=== PATIENT | female | born 1980 | race Caucasian/White ===

== ENCOUNTER 2021-09-13 08:41 | Outpatient (CLI) | payer OTHER, SELFPAY ==
--- NOTE | ~2021-09-13 | MM_ITS ---
EXAMINATION: MM screening chicho BI w kyaw HISTORY: Screening mammogram TECHNIQUE: Craniocaudal and mediolateral oblique 3-D tomosynthesis images were obtained and synthetic 2-D images were generated. CAD analysis was submitted and interpreted. COMPARISON: 02/26/2019, 12/24/2017, 01/16/2016 bilateral digital screening mammogram examinations BREAST PARENCHYMAL COMPOSITION: The breasts are heterogeneously dense, which may obscure small masses . FINDINGS: There is no evidence of suspicious mass, calcification, or architectural distortion to sugg est malignancy in either breast. There has been no suspicious interval change. IMPRESSION: 1. No mammographic evidence of malignancy. 2. Recommend routine screening mammography in one year. BI-RADS Category 1: Negative Reviewed, dictated and finalized at location A.
== END 2021-09-13 08:42 | disposition home or self-care (01) ==
LOC: ANHIMG 08:46
PROVIDERS: PCP Family Medicine; Visit Provider Obstetrics & Gynecology
DX: Z12.31 Encounter for screening mammogram for malignant neoplasm of breast (principal)
CPT/HCPCS: 77063; 77067

== ENCOUNTER → 2021-12-28 11:15 | Outpatient (REF) | payer OTHER, SELFPAY | LOC: ANHLAB 11:15 | PROVIDERS: PCP Family Medicine; Visit Provider Nurse Practitioner | DX: D22.39 Melanocytic nevi of other parts of face (principal) | CPT/HCPCS: 88305 ==

== ENCOUNTER 2022-07-27 11:25 | Outpatient (CLI) | payer OTHER, SELFPAY ==
--- NOTE | ~2022-07-27 | MM_ITS ---
EXAMINATION: MM diagnostic chicho BI w kyaw HISTORY: Left breast pain, palpable left breast lump TECHNIQUE: Full field and spot ML, MLO and CC 3-D tomosynthesis images of both breasts were performed and synthetic 2-D images were generated. CAD analysis was submitted and interpreted. COMPARISON: 09/13/2021 bilateral screening mammogram BREAST PARENCHYMAL COMPOSITION: The breasts are heterogeneously dense, which may obscure small masses . FINDINGS: Bilateral mammographic asymmetries. No suspicious calcifications. No skin thickening or retraction. IMPRESSION: 1. Bilateral mammographic asymmetries 2. Bilateral breast ultrasound examination is recommended. BI-RADS Category 0: Incomplete: Needs additional imaging evaluation. Reviewed, dictated and finalized at location A.
== END 2022-07-27 11:26 | disposition home or self-care (01) ==
LOC: ANHIMG 11:26
PROVIDERS: PCP Family Medicine; Visit Provider Family Medicine
DX: N64.4 Mastodynia (principal); R92.8 Other abnormal and inconclusive findings on diagnostic imaging of breast
CPT/HCPCS: 77062; 77066; G0279

== ENCOUNTER → 2022-07-31 08:47 | Outpatient (CLI) | payer OTHER, SELFPAY ==
--- NOTE | ~2022-07-31 | US_ITS ---
US breast BI complete DATE: 07/31/2022 09:26 INDICATION: Bilateral mammographic asymmetries reported on 07/27/2022 bilateral diagnostic mammogram TECHNIQUE: Real-time imaging of all 4 quadrants and subareolar areas of both breasts. COMPARISON: 07/27/2022 bilateral screening mammogram FINDINGS: Right breast: 11:00 4 cm from nipple: Irregular 6.2 x 8.7 x 11 mm mass with internal vascularity, no posterior shad owing. Ultrasound-guided biopsy is recommended. 11:00 3 cm from nipple: 4 mm cyst 12:00 3 cm from nipple: 4.7 x 5.8 x 7.4 mm parallel circumscribed hypoechoic lesion without internal vascularity or posterior shadowing, likely benign 4:00 4 cm from nipple: Irregular hypoechoic approximately 5.5 x 3.2 x 4 mm area without internal vasc ularity or posterior shadowing. The irregularity however is of concern. Consider ultrasound-guided bi opsy. 8:00 5 cm from nipple: 2.6 mm cyst Left breast: 12:00 1 cm from nipple: Parallel circumscribed 5.2 x 3.9 x 3.8 mm hypoechoic lesion without internal internal vascularity or posterior shadowing, likely benign 11:00 2 cm from nipple: 4 x 3.7 x 5 mm circumscribed hypoechoic lesion without internal vascularity o r posterior shadowing, likely benign 1:00 3 cm from nipple: 3 mm rounded hypoechoic area without internal vascularity or posterior shadowi ng, likely benign 4:00 near nipple: 3.5 x 4 x 4.5 mm probable septated cyst 6:00 4 cm from nipple: Circumscribed heterogeneous reviewed by 11 10 mm lesion without internal vascu larity or posterior shadowing, likely benign. 6:00 near nipple: Parallel circumscribed 3.2 x 2.4 x 4.6 mm well-circumscribed hypoechoic area, likel y benign 8:00 5 cm from nipple: Parallel circumscribed hypoechoic 2.3 x 2.89 mm lesion without internal vascul arity or posterior shadowing, likely benign IMPRESSION: Right breast 11:00 6.2 x 8.7 x 11 mm lesion 4 cm from nipple with internal vascularity; u ltrasound-guided biopsy is recommended Right breast 4:00 lesion 4 cm from nipple: Irregular hypoechoic 5.5 x 3.2 x 4 point millimeter area; ultrasound-guided biopsy is recommended Bilateral breast ultrasound follow-up in 6 months is recommended for multiple bilateral probably amber gn breast masses Right breast: BI-RADS Category 4: Suspicious abnormalities; biopsy should be considered (11:00 and 4: 00) Right and left breast: BI-RADS Category 3: Probably benign lesions of both breasts; bilateral breast ultrasound follow-up in 6 months is recommended Reviewed, dictated and finalized at Location A. Reviewed, dictated and finalized at location A. IMPRESSION: Right breast 11:00 6.2 x 8.7 x 11 mm lesion 4 cm from nipple with i nternal vascularity; ultrasound-guided biopsy is recommended Right breast 4:00 lesion 4 cm from nipple: Irregular hypoechoic 5.5 x 3.2 x 4 p oint millimeter area; ultrasound-guided biopsy is recommended Bilateral breast ultrasound follow-up in 6 months is recommended for multiple b ilateral probably benign breast masses Right breast: BI-RADS Category 4: Suspicious abnormalities; biopsy should be co nsidered (11:00 and 4:00) Right and left breast: BI-RADS Category 3: Probably benign lesions of both pat sts; bilateral breast ultrasound follow-up in 6 months is recommended
== END ==
PROVIDERS: PCP Family Medicine; Visit Provider Family Medicine
DX: R92.8 Other abnormal and inconclusive findings on diagnostic imaging of breast (principal)
CPT/HCPCS: 76641

== ENCOUNTER 2022-08-16 09:04 | Outpatient (CLI) | payer OTHER, SELFPAY ==
--- NOTE | ~2022-08-16 | MMUS_ITS ---
EXAMINATION: US GUIDED NEEDLE BIOPSY DATE: 08/16/2022 10:41 CDT INDICATION: 11:00 and 4:00 ultrasound breast abnormalities TECHNIQUE AND FINDINGS: The risks and potential benefits of the procedure were discussed with the patient, and written inform ed consent was obtained. Timeout procedure was performed. After sterile preparation of the right pat st, 1% lidocaine was utilized for local anesthesia 4 11:00 and 4:00 lesions. A 14G spring-loaded biopsy gun needle was advanced to the edge of the region of the 11:00 lesion and subsequently 4:00 lesion from a lateral approach approach utilizing sonographic guidance. A total of 4 core samples were obtained from the 11:00 lesion and three tissue core samples were obtained throu gh the 4:00 lesion. An Inrad tissue marker clip was then placed at each of the 2 biopsy sites. Hemos tasis was achieved. A sterile bandage was applied. The patient tolerated procedure well and there was no evidence of immediate complication. The patien t was given verbal instructions prior to departing from the department. A two view mammogram was perf ormed to document tissue marker clip placements. The tissue samples were submitted to surgical pathol bladimir for histologic analysis. IMPRESSION: 1. Successful ultrasound guided biopsy of right 11:00 and 4:00 breast masses with biopsy marker plac eran. Reviewed, dictated and finalized at Location A. Reviewed, dictated and finalized at location A. IMPRESSION: 1. Successful ultrasound guided biopsy of right 11:00 and 4:00 breast masses w ith biopsy marker placement. IMPRESSION: 1. Successful ultrasound guided biopsy of right 11:00 and 4:00 breast masses w ith biopsy marker placement.
== END 2022-08-16 09:05 | disposition home or self-care (01) ==
PROVIDERS: PCP Family Medicine; Visit Provider Family Medicine
DX: R92.8 Other abnormal and inconclusive findings on diagnostic imaging of breast (principal)
CPT/HCPCS: 19083; 19084; 88305; A4648

== ENCOUNTER 2023-01-06 14:29 | Emergency (ER) | payer OTHER, SELFPAY ==
[2023-01-06 14:40] VITALS: BP 129/87; PULSE 116; RESP 16; TEMP 36.9; O2SAT 100
--- NOTE | 2023-01-06 14:52 | ED.FEMALEGU ---
HPI - Female Genitourinary General Chief complaint: Urogenital-Female Stated complaint: uti Time Seen by Provider: 01/06/23 14:40 Source: patient Mode of arrival: ambulatory Limitations: no limitations History of Present Illness HPI Narrative: Patient presents today with a 2 week history of dysuria, urgency, malodorous urine, and cloudy urine. Denies abdominal pain, back pain. Patient is just finishing her menstrual cycle. She has tried no [id number] treatment prior to arrival. Related Data Home Medications Medication Instructions Recorded Confirmed levothyroxine 112 mcg tablet 88 mcg PO DAILY 11/07/21 01/06/23 (Synthroid) Allergies Allergy/AdvReac Type Severity Reaction Status Date / Time NSAIDS (Non-Steroidal AdvReac Intermediate ABD PAIN, Verified 12/28/21 10:49 Anti-Inflamma DIARRHEA-HX COLITIS Review of Systems Review of Systems: CONSTITUTIONAL: Denies body aches, fever, chills, or sweats. EYES: Denies visual changes, redness, or discharge. ENT: Denies rhinorrhea, congestion, sore throat, or otalgia. CARDIOVASCULAR: Denies chest pain, palpitations, or edema. RESPIRATORY: Denies cough or dyspnea. GASTROINTESTINAL: Denies abdominal pain, nausea, vomiting, or diarrhea. GENITOURINARY: + dysuria, urgency, malodorous urine, cloudy urine SKIN: Denies rash, itching, or wounds. MUSCULOSKELETAL: Denies back pain, joint pain, or myalgia. NEUROLOGIC: Denies headache, numbness, tingling, or weakness. PSYCH: Denies depression or anxiety. [facility] Past Medical History Medical History Collagenous colitis Thyroid disease Family History Family History Mother Breast cancer Other Breast cancer Grandparent Cerebrovascular accident Social History Social History Alcohol intake: never Comments At time of signature, I have reviewed and agree with nursing past medical, surgical, social and family history unless otherwise noted. Please see nursing chart for further information. There is no relevant family history pertinent to the presenting complaint Exam Narrative: GENERAL: Well-appearing, well-nourished, and in no acute distress. HEAD: Normocephalic, atraumatic. EYES: EOMI. No redness or drainage. Conjunctivae normal. ENT: Mucous membranes pink and moist. NECK: Normal AROM CHEST: No respiratory distress. Clear to auscultation. HEART: Regular rate and rhythm. No murmur appreciated. Normal peripheral pulses. ABDOMEN: Soft, nondistended, normal active bowel sounds.+ palpation of the suprapubic area causes sensation of urinary urgency. -CVAT EXTREMITIES: Normal range of motion. No edema. SKIN: Warm, dry, no rash. Capillary refill normal. Normal skin turgor. NEURO: No focal deficits. Alert and oriented x3. Gait steady. PSYCH: Normal affect. No signs of depression or anxiety. Course Course Level of Care: Express Care Visit Vital Signs Vital signs: Vital Signs Temperature 98.5 F 01/06/23 14:40 Pulse Rate 116 H 01/06/23 14:40 Respiratory Rate 16 01/06/23 14:40 Blood Pressure 129/87 01/06/23 14:40 Pulse Oximetry 100 01/06/23 14:40 Temperature 98.5 F 01/06/23 14:40 Pulse Rate 116 H 01/06/23 14:40 Respiratory Rate 16 01/06/23 14:40 Blood Pressure 129/87 01/06/23 14:40 Pulse Oximetry 100 01/06/23 14:40 Reviewed. Pt has been instructed to follow up with her PCP regarding her elevated blood pressure today. MDM - Female Genitourinary MDM Narrative Medical decision making narrative: Patient's symptoms and UA are consistent with UTI. Prescription for Keflex sent to pharmacy. Anticipatory guidance given. Differential Diagnosis Differential diagnosis: Likely urinary tract infection, vaginitis, cystitis and other (Pyelonephritis, interstitial cystitis) Lab Data Attestation: I ivana
== END 2023-01-06 15:01 | disposition home or self-care (01) ==
PROVIDERS: Emergency Provider Nurse Practitioner; PCP Family Medicine
DX: N30.01 Acute cystitis with hematuria (principal); E07.9 Disorder of thyroid, unspecified
CPT/HCPCS: 81003; 87086; 87088; 99213; G0463

== ENCOUNTER 2023-03-07 15:10 | Outpatient (CLI) | payer OTHER, SELFPAY ==
--- NOTE | ~2023-03-07 | US_ITS ---
EXAMINATION: US breast BI limited, US axilla BI HISTORY: Six-month follow-up for probably benign bilateral breast masses and palpable abnormalities o f the axilla. TECHNIQUE: Bilateral axillary ultrasound and limited bilateral breast ultrasound is performed. COMPARISON: 07/31/2022 FINDINGS: There are bilateral similar-appearing breast masses, none of which demonstrate suspicious i nterval change. No suspicious sonographic correlate is identified for the reported palpable abnormali ties in the axillae. IMPRESSION: 1. Stable similar appearing bilateral breast masses, considered benign. 2. No specific sonographic correlate is identified for the reported palpable abnormalities of the axi ally. Further evaluation at this time should be based on clinical assessment. Continued follow-up phy sical examination is recommended. BI-RADS Category 2: Benign finding(s). Reviewed, dictated and finalized at location A. IMPRESSION: 1. Stable similar appearing bilateral breast masses, considered benign. 2. No specific sonographic correlate is identified for the reported palpable ab normalities of the axially. Further evaluation at this time should be based on clinical assessment. Continued follow-up physical examination is recommended. BI-RADS Category 2: Benign finding(s).
== END 2023-03-07 15:11 | disposition home or self-care (01) ==
PROVIDERS: PCP Family Medicine; Visit Provider Family Medicine
DX: R23.8 Other skin changes (principal); R92.8 Other abnormal and inconclusive findings on diagnostic imaging of breast
CPT/HCPCS: 76642; 76882

== ENCOUNTER 2023-03-22 03:02 | Day surgery (SDC) | payer OTHER, SELFPAY ==
[2023-03-11 10:27] VITALS: BMI 23.1
--- NOTE | 2023-03-21 22:04 | PM.HPGS ---
History of Present Illness History of Present Illness Consent: Risks, benefits, and alternatives have been discussed and questions answered. Patient agrees to proceed with procedure. Chief complaint: GERD,dysph, colitis, hematochezia Narrative: Maritza Fisher ? Is a 42-year-old female who reports dysphagia to certain meats and pizza crust and also painful swallowingis she?has a history of collagenous colitis and Poppy's and follows with endocrine.? She had a colonoscopy due to extreme diarrhea and weight loss in 2012 by me and was diagnosed with collagenous colitis-.? She intermittently will have bouts of diarrhea either multiple times per week or multiple times per month.? Diarrheal will be worse if she eats a salad.? She does report abdominal cramping and increased gurgling with the diarrhea.? her main concern now is that she gets the pain just below the left side of her ribs and feels that it is a sensitivity for foods. It can last for an hour or for several days. She has concluded that is due to certain foods such as blackberries because the seeds seem to give her difficulty. She has also avoided gluten thinking that might help. She had a bright red bloody episode with clots 1-2 weeks ago and believes she has hemorrhoids but not entirely sure.? She also reports ?2 decades? of acid reflux and will depend on certain types of foods. Review of Systems Review of Systems: All systems reviewed & are unremarkable except as noted in HPI and below PMFSH Past Medical History Medical History Collagenous colitis Collagenous colitis Diarrhea Dysphagia GERD (gastroesophageal reflux disease) Odynophagia Thyroid disease Family History Family History Mother Breast cancer Other Breast cancer Grandparent Cerebrovascular accident Social History Social History Smoking status: Never smoker Alcohol intake: current Alcohol use details: rare Substance use: never Substance use type: does not use Living arrangements: with family Spiritual care concerns: No Meds Home Medications and Allergies Home Medications Medication Instructions Recorded Confirmed Type levothyroxine 112 mcg tablet 88 mcg PO DAILY 11/07/21 03/11/23 History (Synthroid) Adults Multivitamin 1 tab-cap PO DAILY 03/11/23 03/22/23 History Vitamin D3 (calcium cit-phos) 1 tab-cap PO DAILY 03/11/23 03/22/23 History vitamin K2 1 tab-cap PO DAILY 03/11/23 03/22/23 History Allergies Allergy/AdvReac Type Severity Reaction Status Date / Time NSAIDS (Non-Steroidal AdvReac Intermediate ABD PAIN, Verified 03/22/23 11:44 Anti-Inflamma DIARRHEA-HX COLITIS Exam Const: General: alert Orientation/consciousness: patient oriented x3 Resp: Auscultation: clear to auscultation bilaterally Cardio: Rhythm: regular rhythm GI: GI Palp: Yes Soft to palpation and No Tenderness to palpation present (GI) Neuro: General: patient oriented x3 Assessment and Plan Assessment and plan (1) Dysphagia: Code(s): R13.10 - Dysphagia, unspecified Status: Acute Assessment and Plan: EGD with possible biopsy or dilatation or cautery. (2) Diarrhea: Code(s): R19.7 - Diarrhea, unspecified Status: Acute Assessment and Plan: Colonoscopy with possible biopsy or polypectomy or cautery or injection of substances.
[2023-03-22 11:45] VITALS: BP 115/86; PULSE 113; RESP 18; TEMP 36.4; O2SAT 98; BMI 21.7
[2023-03-22] MEDS: LACTATED RINGERS 1,000 ML 150 ML IV CONT (11:48)
--- NOTE | 2023-03-22 12:29 | P.PNAN_ITS ---
Anes - Initial Pre Proc Eval Procedure: Operation Date: 03/22/23 12:45 Proposed Procedures p Esophagogastroduodenoscopy & Colonoscopy - Billy Amanda MD Date/Time: 03/22/23 12:29 Surgeon: Billy Amanda MD Pre Op Diagnosis: GERD,dysph, colitis, hematochezia Patient Data Age: 42 Gender: F Height: 1.65 m Weight: 59.1 kg Last Vital Signs Temp 97.6 F 03/22/23 11:45 Pulse 113 H 03/22/23 11:45 Resp 18 03/22/23 11:45 BP 115/86 03/22/23 11:45 Pulse Ox 98 03/22/23 11:45 O2 Del Method Room Air 03/22/23 11:45 Allergies Allergy/AdvReac Type Severity Reaction Status Date / Time NSAIDS (Non-Steroidal AdvReac Intermediate ABD PAIN, Verified 03/22/23 11:44 Anti-Inflamma DIARRHEA-HX COLITIS Home Medications Medication Instructions Recorded Confirmed Type levothyroxine 112 mcg tablet 88 mcg PO DAILY 11/07/21 03/11/23 History (Synthroid) Adults Multivitamin 1 tab-cap PO DAILY 03/11/23 03/22/23 History Vitamin D3 (calcium cit-phos) 1 tab-cap PO DAILY 03/11/23 03/22/23 History vitamin K2 1 tab-cap PO DAILY 03/11/23 03/22/23 History Patient hx anesthesia problems: none Family hx anesthesia problems: none Results Review: All pre-operative results and documents have been reviewed as part of the pre- operative evaluation. [facility], [facility] Past Medical History Medical History Collagenous colitis Collagenous colitis Diarrhea Dysphagia GERD (gastroesophageal reflux disease) Odynophagia Thyroid disease Family History Family History Mother Breast cancer Other Breast cancer Grandparent Cerebrovascular accident Social History Social History Smoking status: Never smoker Alcohol intake: current Alcohol use details: rare Substance use: never Substance use type: does not use Living arrangements: with family Spiritual care concerns: No Anes - Eval Final PreProcedure Day of Procedure 03/22/23 12:29 Patient weight: normal Heart: regular rate and rhythm Lungs: clear to auscultation Airway: Mallampati scale class II Neurological: alert and oriented Last oral intake: >/= 8 hours ASA classification: II Emergent: no Anesthetic plan: proceed Anesthesia type and monitoring: general GIVS and standard monitoring Results Review: All pre-operative results and documents have been reviewed as part of the pre- operative evaluation. Informed Consent: The patient's anesthetic plan and its attendant risks and benefits were discussed with the patient/family/POA. Questions were solicited and answers provided to the satisfaction of the patient/family/POA.
[2023-03-22 12:33] VITALS: BP 112/73; PULSE 78; RESP 18; O2SAT 100
--- NOTE | 2023-03-22 12:48 | SUR.OPER ---
EGD completed 1240, colonoscopy started 1248
[2023-03-22 13:03] VITALS: BP 79/51; PULSE 82; RESP 18; O2SAT 99
[2023-03-22 13:13] VITALS: BP 85/53; PULSE 72; RESP 18; O2SAT 100
[2023-03-22 13:23] VITALS: BP 97/60; PULSE 66; RESP 18; O2SAT 100
== END 2023-03-22 14:00 | disposition home or self-care (01) ==
PROVIDERS: PCP Family Medicine; Visit Provider Internal Medicine Gastroenterology
PROC: 0DJ08ZZ Inspection of Upper Intestinal Tract, Via Natural or Artificial Opening Endoscopic (ICD-10-PCS; CPT 43235; principal; 2023-03-22 12:45)
DX: R19.7 Diarrhea, unspecified (principal); K64.8 Other hemorrhoids; K29.70 Gastritis, unspecified, without bleeding; R13.10 Dysphagia, unspecified; E07.9 Disorder of thyroid, unspecified
CPT/HCPCS: 45380; 43239; 87081; 88305; J2704; J7120

== ENCOUNTER 2023-05-13 00:58 | Day surgery (SDC) | payer OTHER, BC, SELFPAY ==
[2023-05-08 11:24] VITALS: BMI 21.6
--- NOTE | 2023-05-08 11:30 | PC.NURSE ---
Report to the Outpatient Waiting Room, entrance under the green pavilion located off [facility], at time 0600 on date 05/13/23. Planned Procedure Time: 0730. Time changes happen often and if your time is changed the preop area will call you the afternoon before. - You and your visitor will be asked to self-screen and do not enter if you have any COVID symptoms. - A mask is optional within the hospital at this time. Patients may have clear liquids (water, carbonated beverages, clear teas, apple juice) until 3 hours prior to surgery with a maximum of 20 ounces. - No food from midnight until time of surgery Take the following medications with a SIP of water the morning of surgery: LEVOTHYROXINE DO NOT STOP ANY OF YOUR OTHER PRESCRIPTION MEDICATIONS PRIOR TO SURGERY ?EXCEPT THE FOLLOWING Medications to discontinue per physician: VITAMINS/SUPPLEMENTS Date to take last dose: 05/09/23 Please no make-up, nail ukrainian, hairspray, perfume, deodorant, or body powder the day of surgery. No jewelry (including any body piercings) or valuables the day of surgery, leave them at home. Please take a shower or bath the night before, or the morning of, surgery with an antibacterial soap. Wear comfortable, loose fitting clothing. - Jewelry must be removed prior to entering the operating room. Rings and piercings that are not removed may be cut off. - The hospital will not accept responsibility for valuables. - Please leave all valuables, including medications, at home the day of surgery. If you are going home after surgery, a licensed dumpcart driver must drive you home. - NO public transportation without another adult if you receive anesthesia. - We recommend that an adult stay with you for 24 hours following discharge. - We also recommend that you do not drive, make important decision, drink alcoholic beverages, or take any drugs that were not prescribed by your health care provider for at least 24 hours after your discharge time. Follow any additional instructions given to you from your surgeon. If you or anyone in your household have experienced Covid symptoms in the past week, please notify your surgeon or the nurse liaison at the phone number below for possible testing. Telephone instructions given to PT - DIONISIO NÚÑEZ and asked if any additional questions and then verbalized understanding. Patient advised to call surgeon office or pre surgery nurse liaison [phone] if any additional questions.
--- NOTE | 2023-05-12 10:59 | PM.IMHP ---
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 She is unsure how long the vaginal bump has been there; her noticed it. She denies pain, itching, discharge. [place] is not painful, but she would like it removed. Also had an annoying bump on her buttock that gets irritated by her underwear that she would also like removed. She is using condoms for BC; but wants to proceed with permanent sterilization. Review of Systems Constitutional: Constitutional: Denies chills, Denies fever(s) and Denies headache(s) Eyes: Eyes: Denies change in vision ENT: Denies dizziness and Denies headache(s) Cardiovascular: Cardiovascular: Denies chest pain and Denies dyspnea Respiratory: Respiratory: Denies cough and Denies dyspnea Gastrointestinal: Gastrointestinal: Denies abdominal pain and Denies change in stool character Genitourinary: Genitourinary: Denies abnormal menses, Denies pelvic pain, Denies vaginal discharge, Denies vaginal odor and Denies vaginal pruritus Neurologic: Denies dizziness and Denies headache(s) Psychiatric: Psychiatric: Denies anxiety and Denies depression PMFSH Past Medical History Medical History Chronic diarrhea Collagenous colitis Collagenous colitis Colon cancer screening Diarrhea Dysphagia Encounter for screening colonoscopy GERD (gastroesophageal reflux disease) Internal hemorrhoids Irritable bowel syndrome with diarrhea LUQ pain Odynophagia Thyroid disease Weight loss Surgical History Surgical History H/O endoscopy H/O hemorrhoidectomy History of dilation and curettage Hx of breast biopsy right breast Family History Family History Mother Breast cancer Other Breast cancer Grandparent Cerebrovascular accident Social History Social History Smoking status: Never smoker Alcohol intake: current Alcohol use details: RARE Substance use: never Substance use type: does not use Living arrangements: with family Occupation/Education: occupation Gender identity (if verbalized by the patient): Female Sexual Orientation (if Verbalized by the Patient): Straight or Heterosexual Spiritual care concerns: No Meds Home Medications and Allergies Home Medications Medication Instructions Recorded Confirmed Type cholecalciferol (vitamin D3) 125 125 mcg PO DAILY 05/08/23 05/08/23 History mcg (5,000 unit) tablet (Vitamin D3) levothyroxine 88 mcg tablet 88 mcg PO DAILY 05/08/23 05/08/23 History multivitamin 1 tablet PO DAILY 05/08/23 05/08/23 History vitamin K2 100 mcg capsule 100 mcg PO DAILY 05/08/23 05/08/23 History Allergies Allergy/AdvReac Type Severity Reaction Status Date / Time NSAIDS (Non-Steroidal AdvReac Intermediate ABD PAIN, Verified 05/08/23 11:23 Anti-Inflamma DIARRHEA-HX COLITIS Exam Const: General: cooperative, healthy appearing, comfortable and no acute distress Orientation/consciousness: patient oriented x3 Resp: Effort & Inspection: normal respiratory effort Cardio: Rate: regular rate GI: Inspection: normal to inspection GI Palp: No abdominal tenderness and Yes Soft to palpation : Other: deferred to OR Skin: General skin exam: normal color Neuro: General: patient oriented x3 Extrem: General: normal to inspection Psych: Appearance: grossly normal Affect: normal affect Attitude: cooperative Assessment and Plan Assessment and plan (1) Encounter for female sterilization procedure: Code(s): Z30.2 - Encounter for sterilization Status: Acute (2) Vaginal inclusion cyst: Code(s): N89.8 - Other specified noninf
[2023-05-13] VITALS (12 sets, daily range): BP systolic 89–124; BP diastolic 51–73; PULSE 56–96; RESP 12–16; TEMP 36.3–37.2; O2SAT 100
--- NOTE | 2023-05-13 06:47 | WPDANESEPPF ---
Anes - Initial Pre Proc Eval Procedure: Operation Date: 05/13/23 07:30 Proposed Procedures p Bilateral Laparoscopic Salpingectomy, Excision of Vaginal Cyst, Excision of Right Buttock Lesion - Myrna Kay MD Date/Time: 05/13/23 06:47 Surgeon: Myrna Kay MD Pre Op Diagnosis: desired sterilization, vag cyst, butt cheek lesion Patient Data Age: 42 Gender: F Height: 1.65 m Weight: 58.8 kg Last Vital Signs Temp 37.2 C 05/13/23 06:29 Pulse 96 05/13/23 06:29 Resp 16 05/13/23 06:29 BP 101/71 05/13/23 06:29 Pulse Ox 100 05/13/23 06:29 O2 Del Method Room Air 05/13/23 06:29 Allergies Allergy/AdvReac Type Severity Reaction Status Date / Time NSAIDS (Non-Steroidal AdvReac Intermediate ABD PAIN, Verified 05/13/23 06:30 Anti-Inflamma DIARRHEA-HX COLITIS Home Medications Medication Instructions Recorded Confirmed Type cholecalciferol (vitamin D3) 125 125 mcg PO DAILY 05/08/23 05/13/23 History mcg (5,000 unit) tablet (Vitamin D3) levothyroxine 88 mcg tablet 88 mcg PO DAILY 05/08/23 05/13/23 History multivitamin 1 tablet PO DAILY 05/08/23 05/13/23 History vitamin K2 100 mcg capsule 100 mcg PO DAILY 05/08/23 05/13/23 History Patient hx anesthesia problems: none Family hx anesthesia problems: none Results Review: All pre-operative results and documents have been reviewed as part of the pre-operative evaluation. FOR[facility]LY [facility] Past Medical History Medical History Chronic diarrhea Collagenous colitis Collagenous colitis Colon cancer screening Diarrhea Dysphagia Encounter for screening colonoscopy GERD (gastroesophageal reflux disease) Internal hemorrhoids Irritable bowel syndrome with diarrhea LUQ pain Odynophagia Thyroid disease Weight loss Surgical History Surgical History H/O endoscopy H/O hemorrhoidectomy History of dilation and curettage Hx of breast biopsy right breast Family History Family History Mother Breast cancer Other Breast cancer Grandparent Cerebrovascular accident Social History Social History Smoking status: Never smoker Alcohol intake: current Alcohol use details: RARE Substance use: never Substance use type: does not use Living arrangements: with family Occupation/Education: occupation Gender identity (if verbalized by the patient): Female Sexual Orientation (if Verbalized by the Patient): Straight or Heterosexual Spiritual care concerns: No Anes - Eval Final PreProcedure Day of Procedure 05/13/23 06:47 Patient weight: normal Heart: regular rate and rhythm Lungs: clear to auscultation Airway: Mallampati scale class II Neurological: alert and oriented Last oral intake: >/= 8 hours ASA classification: II Emergent: no Anesthetic plan: proceed Anesthesia type and monitoring: general ETT and standard monitoring Results Review: All pre-operative results and documents have been reviewed as part of the pre-operative evaluation. Informed Consent: The patient's anesthetic plan and its attendant risks and benefits were discussed with the patient/family/POA. Questions were solicited and answers provided to the satisfaction of the patient/family/POA.
[2023-05-13] MEDS: LACTATED RINGERS 1,000 ML 30 ML IV CONT ×2 (06:51→10:20)
[2023-05-13] MEDS: ACETAMINOPHEN 500 MG TABLET 1000 MG PO (06:52)
--- NOTE | 2023-05-13 06:57 | WPDHPUPDATE1 ---
History and Physical Update Update Date/Time: 05/13/23 06:57 History and Physical has been reviewed, including an updated exam of the patient. There are NO changes in the patient's condition. Risks, benefits, and alternatives have been discussed and questions answered. Patient agrees to proceed with procedure.
[2023-05-13] MEDS: BUPIVACAINE/EPINEPHRINE 0.5% 50 ML VIAL 10 ML INFILTRATE (07:28)
--- NOTE | 2023-05-13 08:32 | W.PM.PROC2 ---
Procedure Note - Detailed Date of Procedure 05/13/23 Pre-op Diagnosis desired sterilization, vag cyst, butt cheek lesion Post-op Diagnosis Same Procedure Performed Laparoscopic bilateral salpingectomy, vaginal cyst removal, buttock lesion removal Surgeon Myrna Kay MD Anesthesia General and Local (30cc of 0.25% Marcaine w/ epi) Findings Normal cervix; right cornual fibroid ~3cm, left fallopian tube with small paratubal cyst (removed), normal left fallopain tubes, normal ovaries. 1cm midline epidermoid cyst ~1-2 cm posterior to the hymen. 2cm cyst of right buttock; appears to be a lipoma. Description of Procedure Maritza was taken to the operating room where she was placed under general endotracheal anesthesia without complications. She was then prepped and draped in the usual sterile fashion in the dorsal lithotomy position with her legs in low Quoc stirrups and her arms tucked at her side with a strap over her chest. A time-out was performed and no preoperative antibiotics were indicated. My attention was turned down below where her bladder was drained via straight catheterization. A bivalve speculum was then placed within the vagina where the cervix was easily identified. The anterior lip of the cervix was grasped with a single-tooth tenaculum and a diagnostic uterine manipulator was placed without complications. My gloves were changed and my attention was turned to her abdomen. An umbilical incision was made, and a 5 mm trocar was placed under direct visualization without complications. Once intra-abdominal placement was confirmed the abdomen was insufflated with carbon dioxide gas. She was then placed in Trendelenburg and two additional 5 mm ports were placed in the left and right lower quadrants under direct visualization without complications. The above findings were noted. The left fallopian tube was then elevated and the mesosalpinx was serially clamped, coagulated, transected using the LigaSure device until the proximal end of the fallopian tube was reached. The proximal end of the fallopian tube was cross clamped, coagulated and transected. The tube was then removed from the abdomen. The same procedure was then performed on the right side without any complications. Good hemostasis was noted. All instruments were removed from the abdomen. The insufflation was released and the trocars were removed. The 3 laparoscopic incision sites were reapproximated using 4-0 Monocryl and covered with Dermabond. The incisions were then infiltrated using 0.25% Marcaine with epinephrine. The uterine manipulator was removed. The vaginal lesion was identified and the surrounding area was infiltrated with 0.25% Marcaine with epinephrine. Using a 15 blade, a small incision was made in the vaginal mucosa over the epidermoid cyst. The cyst was undermined and partially removed when the cyst ruptured and caseous contents were noted. The remaining portion of the cyst was removed. The incision was reapproximated using 3-0 Vicryl in the normal fashion. The buttock lesion was identified and the surrounding area was infiltrated with 0.25% Marcaine with epinephrine. a 2cm incision was made and the lipoma was identified and undermined and removed. The incision was reapproximated using 4-0 Monocryl in the normal fashion. Sponge, lap, instrument, and needle counts were correct at the end of the procedure. Patient was awoken from general anesthesia and taken to recovery with plans of same-day discharge home. Estimated Blood Loss 10 IV Fluids 700 Urine Output 200 Pathology Yes (right and left fallopian tubes, right buttock lesion) Complications No immediate complications Condition Stable Disposition Same day [facility] Billing Surgery - Charge Forward: Surgery Billing
--- NOTE | 2023-05-13 09:35 | SUR.PHASEI ---
RN clarified w/ Dr. Kay that taking antibiotics wouldn't interfere with CT of abdomen this coming .
[2023-05-13] MEDS: ONDANSETRON INJ 4 MG/2 ML VIAL IV PUSH (10:29)
--- NOTE | 2023-05-13 11:38 | SUR.PHASEII ---
1125 PATIENT LIGHT-HEADED AND NOT FEELING WELL WHEN SHE STOOD UP. WILL CONTINUE TO GIVE IV FLUIDS AND LET PATIENT REST. BLOOD PRESSURE WNL. COOL COMPRESSES TO FOREHEAD AND NECK. RAQUEL Vieira/Stephanie.
--- NOTE | 2023-05-13 11:56 | SUR.PHASEII ---
PATIENT STILL NOT FEELING WELL IN HER HEAD, FEELS VERY SLEEPY. ORIENTED X 3; DOZING BUT EASILY AROUSABLE. CONTINUE WITH PROVIDING IV FLUIDS. PATIENT NOW EATING APPLE SAUCE.
--- NOTE | 2023-05-13 12:22 | SUR.PHASEII ---
PATIENT ABLE TO STAND AND WALK WITHOUT LIGHT-HEADEDNESS. STATES READY TO GO HOME.
== END 2023-05-13 12:37 | disposition home or self-care (01) ==
PROVIDERS: PCP Family Medicine; Visit Provider Obstetrics & Gynecology
PROC: (CPT 49320; principal; 2023-05-13 07:30)
DX: Z30.2 Encounter for sterilization (principal); N83.8 Other noninflammatory disorders of ovary, fallopian tube and broad ligament; N89.8 Other specified noninflammatory disorders of vagina; D17.1 Benign lipomatous neoplasm of skin and subcutaneous tissue of trunk; D25.9 Leiomyoma of uterus, unspecified; E07.9 Disorder of thyroid, unspecified
CPT/HCPCS: 21930; 58661; 57135; 88302; 88305; A9270; J1100; J1170; J2250; J2405; J2704; J2710; J3010; J7030; J7120

== ENCOUNTER 2023-05-15 13:14 | Emergency (ER) | payer OTHER, BC, SELFPAY ==
[2023-05-15] VITALS (9 sets, daily range): BP systolic 95–110; BP diastolic 69–78; PULSE 70–95; RESP 10–28; TEMP 36.6; O2SAT 98–100
--- NOTE | ~2023-05-15 | XR_ITS ---
EXAMINATION: XR chest 2V DATE: 05/15/2023 14:10 INDICATION: Shortness of breath, recent pelvic surgery TECHNIQUE: PA and lateral views of the chest are obtained. COMPARISON: None available FINDINGS: The lungs are free of acute opacities. No pleural effusion or pneumothorax. The cardiomedia stinal silhouette is normal. The visualized bones and soft tissues are unremarkable. There is free ai r under the diaphragm, consistent with recent surgery. IMPRESSION: 1. No acute cardiopulmonary abnormality. Reviewed, dictated and finalized at location []
--- NOTE | ~2023-05-15 | US_ITS ---
EXAMINATION: US venous doppler [facility] DATE: 05/15/2023 14:42 INDICATION: Bilateral lower limb pain TECHNIQUE: Paiz scale images without and with compression and Doppler images of the bilateral lower e xtremity veins were obtained. COMPARISON: None FINDINGS: The right common femoral vein, profunda femoral vein, femoral vein, popliteal vein, peroneal trunk, p osterior tibial veins, and greater saphenous vein are patent. The left common femoral vein, profunda femoral vein, femoral vein, popliteal vein, peroneal trunk, po sterior tibial veins, and greater saphenous vein are patent. IMPRESSION: 1. Patent bilateral lower extremity veins. No evidence of deep venous thrombosis. Reviewed, dictated and finalized at location [] IMPRESSION: 1. Patent bilateral lower extremity veins. No evidence of deep venous thrombosi s.
--- NOTE | ~2023-05-15 | CT_ITS ---
EXAMINATION: CTA chest PE abdomen pel DATE: 05/15/2023 15:21 INDICATION: Shortness of breath and abdominal pain TECHNIQUE: Computed tomography angiography (CTA) of the chest was performed with 100 mL Omnipaque-350 intravenous contrast timed to evaluate the pulmonary arteries. Subsequent postcontrast images of the abdomen and pelvis are obtained. Coronal maximum intensity projection 3D-reconstructions were create d by the technologist. The dose-length product (DLP) was 438.05 mGy-cm. Automated exposure control an d iterative reconstruction technique were employed. COMPARISON: None. FINDINGS: CTA CHEST: The pulmonary arteries are well-opacified. No pulmonary embolism is identified. The lungs are free of acute opacities. No pleural effusion or pneumothorax. No pathologically enlarged thoracic lymph nodes are identified. The heart size is normal. ABDOMEN/PELVIS CT: There is free intraperitoneal gas predominantly in the upper abdomen. The liver, s pleen, pancreas, gallbladder, and adrenal glands are normal. The kidneys are unremarkable. No patholo gically enlarged abdominal or pelvic lymph nodes are identified. There are no dilated loops of bowel. There is a moderate volume of colonic stool. There is no peritoneal fluid. The urinary bladder is di stended. IMPRESSION: 1. No pulmonary embolus or acute cardiopulmonary abnormality. 2. Free intraperitoneal gas, consistent with recent surgery. No acute findings of the abdomen or pelv is. Reviewed, dictated and finalized at location [] IMPRESSION: 1. No pulmonary embolus or acute cardiopulmonary abnormality. 2. Free intraperitoneal gas, consistent with recent surgery. No acute findings of the abdomen or pelvis.
--- NOTE | 2023-05-15 13:16 | ECG_ITS ---
Measurements Intervals [place] Rate: 78 P: 68 [place]: 135 QRS: 51 QRSD: 91 T: 6 QT: 362 QTc: 415 Interpretive Statements SINUS RHYTHM NONSPECIFIC ST & T-WAVE ABNORMALITY NO PREVIOUS ECG AVAILABLE FOR COMPARISON Electronically Signed On 05-15-2023 13:51:20 CDT by Luis Galloway M.D.
--- NOTE | 2023-05-15 13:51 | ED.SOB ---
HPI - SOB/Dyspnea General Chief Complaint: Shortness of Breath/Dyspnea Stated Complaint: dyspnea Time Seen by Provider: 05/15/23 13:24 Source: patient and RN notes reviewed Mode of arrival: ambulatory Limitations: no limitations History of Present Illness HPI Narrative: This is a 42 year old female with history of collagenase colitis and Hashimotos who presents for evaluation of shortness of breath. Patient is s/p laparoscopic bilateral salpingectomy on 05/[address] Kay. She reports having upper abdominal pressure and substernal chest pressures since her surgery due to gas. She states her abdominal pressure has resolved but she is still having pressure in her chest that is worse with trying to take deep breath. She reports shortness of breath yesterday but it is better today. She was told to come to ER for rule out PE. She reports yesterday she had bilateral calf cramping but that has resolved. She denies history of PE/DVT. 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 She has already had EGD and colonoscopy to assess this pain. She denies nausea, vomiting, fever or chills. She is requesting me to order her CT today Related Data Home Medications Medication Instructions Recorded Confirmed cholecalciferol (vitamin D3) 125 125 mcg PO DAILY 05/08/23 05/13/23 mcg (5,000 unit) tablet (Vitamin D3) levothyroxine 88 mcg tablet 88 mcg PO DAILY 05/08/23 05/13/23 multivitamin 1 tablet PO DAILY 05/08/23 05/13/23 vitamin K2 100 mcg capsule 100 mcg PO DAILY 05/08/23 05/13/23 Allergies Allergy/AdvReac Type Severity Reaction Status Date / Time NSAIDS (Non-Steroidal AdvReac Intermediate ABD PAIN, Verified 05/14/23 14:57 Anti-Inflamma DIARRHEA-HX COLITIS Review of Systems Constitutional: Constitutional: Denies weakness Cardiovascular: Cardiovascular: Denies syncope, Denies rapid heart rate, Denies irregular heart rhythm, Denies leg edema and Denies dyspnea Respiratory: Respiratory: Denies chest congestion, Denies hemoptysis, Denies excessive phlegm production and Denies dyspnea Gastrointestinal: Gastrointestinal: Denies abdominal pain, Denies hematochezia, Denies diarrhea and Denies vomiting Genitourinary: Genitourinary: Denies hematuria and Denies dysuria Musculoskeletal: Musculoskeletal: Denies joint swelling, Denies loss of height and Denies muscle weakness Neurologic: Denies syncope, Denies focal weakness and Denies weakness PMFSH Past Medical History Medical History Chronic diarrhea Collagenous colitis Collagenous colitis Colon cancer screening Diarrhea Dysphagia Encounter for screening colonoscopy GERD (gastroesophageal reflux disease) Internal hemorrhoids Irritable bowel syndrome with diarrhea LUQ pain Odynophagia Thyroid disease Weight loss Surgical History Surgical History H/O endoscopy H/O hemorrhoidectomy History of dilation and curettage History of gynecologic surgery 05/13/2026 Laparoscopic bilateral salpingectomy, vaginal cyst removal, buttock lesion removal Hx of breast biopsy right breast Family History Family History Mother Breast cancer Other Breast cancer Grandparent Cerebrovascular accident Social History Social History Smoking status: Never smoker Alcohol intake: current Alcohol use details: RARE Substance use: never Substance use type: does not use Living arrangements: with family Occupation/Education: occupation Gender identity (if verbalized by the patient): Female Sexual Orientation (if Verbalized by the Patient): Straight or Heterosexual Spiritual care concerns: No Exam Const: General: no acute distress and alert
[2023-05-15 13:55] LABS: Basophils Percent Auto 0.9 % (0.2-1.2); Eosinophils Absolute Auto 0.2 K/mm3 (0-0.3); Eosinophils Percent Auto 4.7 % (0-4.4); Hematocrit 42.1 % (37.0-47.0); Immature Granulocyte Absolute 0.01 K/mm3 (0.00-0.031); Immature Granulocyte Percent A 0.2 % (0-0.5); Lymphocytes Percent Auto 29.2 % (18.3-44.2); Mean Corpuscular HGB Conc 33.3 g/dl (32-36); Mean Corpuscular Hemoglobin 31.3 pg (26-34); Mean Corpuscular Volume 94.2 fl (80-100); Mean Platelet Volume 11.5 fl (7.4-10.4); Monocytes Absolute Auto 0.5 K/mm3 (0.1-0.6); Monocytes Percent Auto 11.2 % (2.6-8.5); Neutrophils Absolute Auto 2.4 K/mm3 (1.3-6.7); Neutrophils Percent Auto 53.8 % (45.5-73.1); Platelet Count Result 222 k/mm3 (150-375); Red Blood Count 4.47 M/mm3 (4.2-5.4); Red Cell Distribution Width 12.9 % (11.5-14.5); White Blood Count 4.5 K/mm3 (4.5-10.0)
[2023-05-15 14:05] LABS: Alanine Aminotransferase 16 U/L (6-35); Albumin Level 4.3 g/dL (3.5-5.1); Alkaline Phosphatase 48 U/L (38-126); Anion Gap 6 mmol/L (8-16); Aspartate Amino Transferase 22 U/L (14-36); Bilirubin,Total 0.6 mg/dL (0.2-1.3); Blood Urea Nitrogen 10 mg/dL (7-17); Carbon Dioxide 27 mmol/L (22-30); Chloride 105 mmol/L (98-107); Estimated CRCL calculation 70 ml/min; Estimated Glomerular Filt Rate > 60; Glucose 93 mg/dL (65-110); Lipase 73 U/L (23-300); Potassium 3.9 mmol/L (3.4-5.0); Sodium 138 mmol/L (137-145)
[2023-05-15 14:06] LABS: Prothrombin Time 13.2 Seconds (11.1-14.7)
[2023-05-15 14:07] LABS: Partial Thromboplastin Time 32.9 SECONDS (22.3-36.8)
[2023-05-15 14:15] LABS: NT Pro B Type Natriuretic Pept 31 pg/mL (19.9-100); Troponin I < 0.012 ng/mL (0.000-0.034)
== END 2023-05-15 16:38 | disposition home or self-care (01) ==
PROVIDERS: Emergency Provider General Practice; PCP Family Medicine
DX: R06.00 Dyspnea, unspecified (principal); E06.3 Autoimmune thyroiditis; Z98.890 Other specified postprocedural states
CPT/HCPCS: 36415; 71046; 71275; 74177; 80053; 83690; 83880; 84484; 85025; 85610; 85730; 93005; 93970; 99284; Q9967

== ENCOUNTER 2023-06-12 08:19 | Outpatient (NON) | payer BC, SELFPAY ==
[2023-06-19 20:12] LABS: Pancreatic Elastase, Stool >500 mcg/g
[2023-06-19 22:03] LABS: Calprotectin, Stool <5 mcg/g
== END 2023-06-12 08:20 | disposition home or self-care (01) ==
PROVIDERS: PCP Family Medicine; Visit Provider Nurse Practitioner
DX: K58.0 Irritable bowel syndrome with diarrhea (principal)
CPT/HCPCS: 82653; 83993; 87045; 87177; 87209; 87269; 87427; 87449

== ENCOUNTER 2023-06-23 12:35 | Outpatient (CLI) | payer BC, SELFPAY ==
--- NOTE | ~2023-06-23 | MR_ITS ---
MRI of the abdomen: Clinical indication: Left upper quadrant pain. Technique: Coronal SSFSE ARC, WATER:coronal LAVA-FLEX, Coronal 2D FIESTA FatSat, Axial SSFSE BH ARC, Axial 3D DualEcho BH, Axial SSFSE-IR, Axial DWI b=500, Axial 2D FIESTA FatSat, pre and dynamic postco ntrast Axial LAVA ARC, postcontrast Coronal In and Opposed phase LAVA FLEX. Following intravenous adm inistration of 11 cc MultiHance gadolinium, T1-weighted fat-sat imaging was performed in the axial an d coronal planes. Findings: Gallbladder is unremarkable. The common bile duct is normal in course and caliber. No filli ng defects are seen within the CBD. No evidence of intrahepatic biliary ductal dilatation. The pancre atic duct is normal in size. Liver, spleen, pancreas, adrenals, kidneys appear normal. The aorta and the paraaortic regions appear normal. No abnormal postcontrast enhancement seen. Impression: No significant abnormality identified. Reviewed, dictated and finalized at [facility]. Impression: No significant abnormality identified.
== END 2023-06-23 12:36 | disposition home or self-care (01) ==
PROVIDERS: PCP Family Medicine; Visit Provider Nurse Practitioner
DX: R10.12 Left upper quadrant pain (principal); K58.0 Irritable bowel syndrome with diarrhea
CPT/HCPCS: 74183; A9577

== ENCOUNTER → 2023-12-30 12:31 | Outpatient (CLI) | payer BC, SELFPAY ==
--- NOTE | ~2023-12-30 | MM_ITS ---
EXAMINATION: MM screening [facility] BI w kyaw HISTORY: Screening mammogram TECHNIQUE: Craniocaudal and mediolateral oblique 3-D tomosynthesis images were obtained and synthetic 2-D images were generated. CAD analysis was submitted and interpreted. COMPARISON: 07/27/2022, 09/13/2021, 02/26/2019, 12/24/2017 BREAST PARENCHYMAL COMPOSITION: The breasts are heterogeneously dense, which may obscure small masses . FINDINGS: Obscured bilateral breast masses are again noted and without significant change. No suspici ous mass, calcification, or architectural distortion are identified in either breast to suggest malig mars. There has been no suspicious interval change. IMPRESSION: 1. No mammographic evidence of malignancy. 2. Recommend routine screening mammography in one year. BI-RADS Category 2: Benign finding(s). Reviewed, dictated and finalized at location A. TING TEACHER
== END ==
PROVIDERS: PCP Family Medicine; Visit Provider Obstetrics & Gynecology
DX: Z12.31 Encounter for screening mammogram for malignant neoplasm of breast (principal)
CPT/HCPCS: 77063; 77067

== ENCOUNTER 2024-05-28 13:30 | Emergency (ER) | payer BC, SELFPAY ==
--- NOTE | ~2024-05-28 | XR_ITS ---
EXAMINATION: XR chest 2V 05/28/2024 14:07 INDICATION: Chest pain PROCEDURE: 2 view chest COMPARISON: 05/15/2023 FINDINGS: The lungs are clear. The cardiomediastinal silhouette is within normal limits. There are no pleural effusions. There is no pneumothorax suspected. IMPRESSION: 1: NO ACUTE CARDIOPULMONARY DISEASE. Reviewed, dictated and finalized at location B.
--- NOTE | 2024-05-28 13:32 | ECG_ITS ---
Test Date: 2024-05-28 13:39:59 Measurements Intervals [place] Rate: 89 P: 68 [place]: 135 QRS: 37 QRSD: 90 T: 11 QT: 356 QTc: 435 Interpretive Statements SINUS RHYTHM POSSIBLE LEFT ATRIAL ENLARGEMENT INCOMPLETE RIGHT BUNDLE BRANCH BLOCK ST ABNORMALITY IN ANTEROLAT/INF LEADS- CONSIDER ISCHEMIA ABNORMAL ECG No previous ECG available for comparison Electronically Signed On 05-28-2024 14:16:14 CDT by Nirmal Bill D.O.
[2024-05-28 13:37] VITALS: BP 115/84; PULSE 97; RESP 14; TEMP 36.8; O2SAT 100
[2024-05-28 13:54] VITALS: PULSE 83
[2024-05-28 13:55] VITALS: O2SAT 99
[2024-05-28 13:58] LABS: Basophils Absolute Auto 0.1 K/mm3 (0.0-0.1); Basophils Percent Auto 1.5 % (0.2-1.2); Eosinophils Absolute Auto 0.2 K/mm3 (0-0.3); Hematocrit 42.8 % (37.0-47.0); Hemoglobin 14.5 g/dL (12.0-15.0); Immature Granulocyte Absolute 0.01 K/mm3 (0.00-0.031); Immature Granulocyte Percent A 0.2 % (0-0.5); Lymphocytes Absolute Auto 1.44 K/mm3 (0.9-3.2); Lymphocytes Percent Auto 26.6 % (18.3-44.2); Mean Corpuscular HGB Conc 33.9 g/dl (32-36); Mean Corpuscular Hemoglobin 31.2 pg (26-34); Mean Platelet Volume 10.7 fl (7.4-10.4); Monocytes Absolute Auto 0.4 K/mm3 (0.1-0.6); Monocytes Percent Auto 6.8 % (2.6-8.5); Neutrophils Absolute Auto 3.4 K/mm3 (1.3-6.7); Neutrophils Percent Auto 61.9 % (45.5-73.1); Platelet Count Result 239 k/mm3 (150-375); Red Blood Count 4.65 M/mm3 (4.2-5.4); Red Cell Distribution Width 12.3 % (11.5-14.5); White Blood Count 5.4 K/mm3 (4.5-10.0)
[2024-05-28 14:08] LABS: Alanine Aminotransferase 16 U/L (6-35); Albumin Level 4.6 g/dL (3.5-5.1); Alkaline Phosphatase 55 U/L (38-126); Anion Gap 9 mmol/L (4-12); Aspartate Amino Transferase 23 U/L (14-36); Bilirubin,Total 0.7 mg/dL (0.2-1.3); Blood Urea Nitrogen 10 mg/dL (7-17); Carbon Dioxide 26 mmol/L (22-30); Chloride 104 mmol/L (98-107); Estimated CRCL calculation 91 ml/min; Estimated Glomerular Filt Rate > 60; Glucose 99 mg/dL (65-110); Lipase 67 U/L (23-300); Potassium 3.8 mmol/L (3.4-5.0); Sodium 139 mmol/L (137-145)
[2024-05-28 14:19] LABS: Troponin I < 0.012 ng/mL (0.000-0.034)
[2024-05-28 14:20] LABS: INR 1.1; Prothrombin Time 14.6 Seconds (11.1-14.7)
[2024-05-28 14:22] LABS: Partial Thromboplastin Time 31.1 Seconds (22.3-36.8)
[2024-05-28 14:52] LABS: D Dimer < 0.27 ug/mL (<0.48)
--- NOTE | 2024-05-28 14:57 | ED.CHESTPAIN ---
HPI - Chest Pain General Chief Complaint: Chest Pain Stated Complaint: chest pain Time Seen by Provider: 05/28/24 14:13 History of Present Illness HPI narrative: 43-year-old female presenting To the emergency department for evaluation for multiple complaints including nausea vomiting diarrhea and left shoulder pain with her palpitations. Patient states she was in [place] over the weekend and did have some nausea vomiting diarrhea. Patient states on Saturday she began developing some left shoulder pain that feels more muscular in nature but is worsened with movement. Patient also states she has had some issues with heart palpitations. Patient had follow-up with urgent care and she was COVID negative but was referred to the emergency department for nonspecific ST changes. patient's EKG today looks very similar to her EKG in 2022. Related Data Home Medications Medication Instructions Recorded Confirmed cholecalciferol (vitamin D3) 125 125 mcg PO DAILY 05/08/23 09/17/23 mcg (5,000 unit) tablet (Vitamin D3) levothyroxine 88 mcg tablet 88 mcg PO DAILY 05/08/23 09/17/23 vitamin K2 100 mcg capsule 100 mcg PO DAILY 05/08/23 09/17/23 Allergies Allergy/AdvReac Type Severity Reaction Status Date / Time NSAIDS (Non-Steroidal AdvReac Intermediate ABD PAIN, Verified 09/17/23 10:32 Anti-Inflamma DIARRHEA-HX COLITIS Review of Systems Review of Systems: All systems reviewed & are unremarkable except as noted in HPI and below PMFSH Past Medical History Medical History Chronic diarrhea Collagenous colitis Collagenous colitis Colon cancer screening Diarrhea Dysphagia Encounter for screening colonoscopy GERD (gastroesophageal reflux disease) Internal hemorrhoids Irritable bowel syndrome with diarrhea Lactose intolerance LUQ pain Odynophagia Thyroid disease Weight loss Surgical History Surgical History H/O endoscopy H/O hemorrhoidectomy History of dilation and curettage History of gynecologic surgery 05/13/2026 Laparoscopic bilateral salpingectomy, vaginal cyst removal, buttock lesion removal Hx of breast biopsy right breast Family History Family History Mother Breast cancer Other Breast cancer Grandparent Cerebrovascular accident Social History Social History Smoking status: Never smoker Alcohol intake: current Alcohol use details: RARE Substance use: never Substance use type: does not use Lack of Transportation: No Lack of Food: Never True Current Housing: I Do Not Have Housing Concerned About Future Housing: No Difficulty Paying Gas/Electric Bills: No Difficulty Paying for Meds: No Currently Unemployed: No Education: Bachelor's Degree Difficulty w/ Childcare or Family Care: No Living arrangements: with family Occupation/Education: occupation Gender identity (if verbalized by the patient): Female Sexual Orientation (if Verbalized by the Patient): Straight or Heterosexual Spiritual care concerns: No Exam Narrative: APPEARANCE: Well appearing, no pain, no distress, well-nourished. HEAD: normocephalic, atraumatic. EYES: PERRLA/EOMI, conjunctivae clear. NOSE: Normal no drainage EARS:TMS clear with good light reflex. THROAT: Pharynx clear, no exudate. NECK: Supple. No adenopathy, no masses. RESPIRATORY: Airway patent, respirations nonlabored. Clear to auscultation bilaterally, no rales, rhonchi, wheezing. CARDIOVASCULAR: Regular rate and rhythm without murmurs rubs or gallops. ABDOMINAL: Soft, nontender, nondistended, normal bowel sounds MUSCULOSKELETAL: Moves all extremities. Strength/ROM intact, No edema, No calf tenderness. NEURO: Alert. Cranial nerves II through XII intact. Good gait. Good coordination SKIN: Warm, dry. Normal Color
[2024-05-28 15:17] VITALS: BP 120/80; PULSE 79; RESP 14; O2SAT 100
[2024-05-28 15:46] LABS: Influenza A QL RT-PCR Negative (Negative); Influenza B QL RT-PCR Negative (Negative); RSV RNA, RT-PCR Negative (Negative); SARS-CoV-2 RNA PCR Negative (Negative)
--- NOTE | 2024-05-28 16:24 | ECG_ITS ---
Test Date: 2024-05-28 16:29:05 Measurements Intervals [place] Rate: 96 P: 65 [place]: 124 QRS: 34 QRSD: 89 T: -9 QT: 353 QTc: 448 Interpretive Statements SINUS RHYTHM WITH SINUS ARRHYTHMIA LOW QRS VOLTAGE IN PRECORDIAL LEADS NONSPECIFIC ST & T-WAVE ABNORMALITY- ANT/INF LEADS BASELINE ARTIFACT- I, II, III, AVR, AVL, AVF BORDERLINE ECG Compared to ECG 05/28/2024 13:39:59 Low QRS voltage now present Electronically Signed On 05-28-2024 20:40:17 CDT by Nirmal Bill D.O.
[2024-05-28 16:45] VITALS: BP 107/82; PULSE 83; RESP 16; O2SAT 98
[2024-05-28 16:45] LABS: Troponin I < 0.012 ng/mL (0.000-0.034)
== END 2024-05-28 17:40 | disposition home or self-care (01) ==
PROVIDERS: Emergency Provider Emergency Medicine; PCP Family Medicine
DX: R00.2 Palpitations (principal); R07.9 Chest pain, unspecified; Z20.822 Contact with and (suspected) exposure to COVID-19; E07.9 Disorder of thyroid, unspecified; K21.9 Gastro-esophageal reflux disease without esophagitis; K58.0 Irritable bowel syndrome with diarrhea; Z79.899 Other long term (current) drug therapy; I45.10 Unspecified right bundle-branch block; R94.31 Abnormal electrocardiogram [ECG] [EKG]
CPT/HCPCS: 36415; 71046; 80053; 83690; 84484; 85025; 85380; 85610; 85730; 87637; 93005; 99284

== ENCOUNTER 2024-09-02 12:35 | Outpatient (CLI) | payer BC, SELFPAY ==
--- NOTE | ~2024-09-02 | MMUS_ITS ---
EXAMINATION: MM diagnostic [facility] BI w kyaw, US breast BI limited HISTORY: Palpable bilateral breast abnormalities TECHNIQUE: Additional 3-D tomosynthesis images of the breasts were performed and synthetic 2-D images were generated. CAD analysis was submitted and interpreted. High resolution limited bilateral breast ultrasound was performed. COMPARISON: Comparison to multiple prior studies sequentially, with oldest reviewed study dated 04/2018. BREAST PARENCHYMAL COMPOSITION: Dense: The breasts are heterogeneously dense, which may obscure small masses FINDINGS: MAMMOGRAPHIC FINDINGS: The right breast is stable without evidence for malignancy. There is a obscured 12 mm mass in the low er central aspect of the left breast, anteriorly. ULTRASOUND: Limited right breast ultrasound: Normal heterogeneous echotexture without focal solid or cystic mass. Limited left breast ultrasound: At 6:00, 2 cm from the nipple there is an oval parallel oriented hypo echoic mass measuring 12 x 12 x 6 mm, new since prior study. This corresponds to the area of palpable concern. There is internal vascularity. No significant posterior features. IMPRESSION: 1. New left breast mass at 6:00, 2 cm from the nipple measuring 12 mm. 2. Ultrasound-guided left breast biopsy recommended. BI-RADS category 4, suspicious findings. Reviewed, dictated and finalized at location B. IMPRESSION: 1. New left breast mass at 6:00, 2 cm from the nipple measuring 12 mm. 2. Ultrasound-guided left breast biopsy recommended. BI-RADS category 4, suspicious findings.
== END 2024-09-02 12:36 | disposition home or self-care (01) ==
LOC: ANHIMG 12:36
PROVIDERS: PCP Obstetrics & Gynecology; Visit Provider Obstetrics & Gynecology
DX: N63.24 Unspecified lump in the left breast, lower inner quadrant (principal); R92.8 Other abnormal and inconclusive findings on diagnostic imaging of breast
CPT/HCPCS: 76642; 77062; 77066; G0279